=== PATIENT | female | born 1995 | race Hispanic/Latino ===

== ENCOUNTER 2019-09-30 22:59 | Emergency (ER) | payer OTHER ==
[2019-09-30] MEDS ORDERED: Lorazepam 1 MG TAB ONE (23:34)
[2019-09-30] MEDS ORDERED: Acetaminophen 500 MG TAB ONE (23:34)
== END 2019-10-01 00:05 | disposition home or self-care (01) ==
LOC: ERS 22:59
DX: G40.909 Epilepsy, unspecified, not intractable, without status epilepticus (principal); F32.9 Major depressive disorder, single episode, unspecified
CPT/HCPCS: 99284